=== PATIENT | female | born 1970 | race Caucasian/White ===

== ENCOUNTER 2020-11-21 09:35 | Emergency (ER) | payer BC ==
[2020-11-22 13:08] LABS: SARS-CoV-2 NAA Not Detected (Not Detected)
== END 2020-11-21 09:57 | disposition home or self-care (01) ==
LOC: JVIRT 09:35
DX: Z11.52 Encounter for screening for COVID-19 (principal)
CPT/HCPCS: C9803; G2251-GT; Q3014-GT; U0003; U0005